=== PATIENT | male | born 1985 | race Two or more races ===

== ENCOUNTER 2020-10-25 00:16 | Emergency (ER) | payer SELFPAY ==
[~2020-10-25] VITALS: Ht 172.7 cm; Wt 97.0 kg
[2020-10-25] MEDS ORDERED: ACETAMINOPHEN 325MG TABLET PO STA (01:11)
[2020-10-25] MEDS ORDERED: ONDANSETRON HCL 4MG/2ML INJ IM STA (01:11)
[2020-10-25 01:38] LABS: BASOPHILS % 0.7 % (0.0-2.0); EOSINOPHILS % 2.7 % (0.0-5.0); HEMATOCRIT. 40.3 % (42.0-52.0); HEMOGLOBIN. 13.8 g/dL (14.0-18.0); LYMPHOCYTES % 25.4 % (20.0-50.0); MEAN CORPUSCULAR HEMOGLOBIN 29.2 pg (28.0-32.0); MEAN CORPUSCULAR VOLUME 85.1 fL (80.0-94.0); MEAN PLATELET VOLUME 7.6 fl (7.4-10.4); MONOCYTES % 6.7 % (2.0-8.0); NEUTROPHILS % 64.5 % (40.0-76.0); PLATELET 341 x1000/uL (130-400); RED BLOOD CELL COUNT 4.73 mill/uL (4.7-6.1); RED CELL DISTRIBUTION WIDTH 13.1 % (11.6-14.6)
[2020-10-25 01:44] LABS: CHLORIDE 108 mEq/L (98-107)
[2020-10-25 01:48] LABS: ETHANOL BLOOD 27 mg/dL
[2020-10-25 01:57] LABS: PROTHROMBIN TIME 10.9 sec (9.6-11.0)
[2020-10-25 01:57] LABS: CLARITY URINE CLOUDY (CLEAR); COLOR URINE YELLOW (YELLOW); KETONES URINE TRACE (NEGATIVE); LEUKOCYTE ESTERASE URINE NEGATIVE (NEGATIVE); NITRITE URINE NEGATIVE (NEGATIVE); OCCULT BLOOD URINE NEGATIVE (NEGATIVE); PROTEIN URINE NEGATIVE (NEGATIVE); SPECIFIC GRAVITY URINE 1.035 (1.005-1.030)
[2020-10-25 02:06] LABS: *AMPHETAMINES SCREEN URINE NEGATIVE (NEGATIVE); *BARBITURATES SCREEN URINE NEGATIVE (NEGATIVE); *BENZODIAZEPINES SCREEN URINE NEGATIVE (NEGATIVE)
[2020-10-25 02:07] LABS: *COCAINE SCREEN URINE NEGATIVE (NEGATIVE); CANNABINOID URINE SCREEN PRESUMTIVE POSITIVE (NEGATIVE); METHADONE URINE SCREEN NEGATIVE (NEGATIVE); OPIATES URINE SCREEN NEGATIVE (NEGATIVE); PHENCYCLIDINE URINE SCREEN NEGATIVE (NEGATIVE)
[2020-10-25] MEDS ORDERED: ACET-2708 PO (02:25)
[2020-10-25] MEDS ORDERED: MECL-159 PO (02:25)
[2020-10-25] MEDS ORDERED: POTASSIUM CHLORIDE 20MEQ TABLET SR PO ONE (02:30)
[2020-10-25 02:34] VITALS: BP 130/80
== END 2020-10-25 02:36 | disposition home or self-care (01) ==
LOC: ER 00:16
DX: T40.7X1A Poisoning by cannabis (derivatives), accidental (unintentional), initial encounter (principal); R42 Dizziness and giddiness; F12.188 Cannabis abuse with other cannabis-induced disorder; F10.129 Alcohol abuse with intoxication, unspecified; E87.6 Hypokalemia; Y90.1 Blood alcohol level of 20-39 mg/100 ml; Y92.89 Other specified places as the place of occurrence of the external cause
CPT/HCPCS: 36415; 71045; 80053; 80305; 80320; 81003; 85025; 85610; 93005; 96372; 99283; J2405; G0480